=== PATIENT | female | born 1955 | race Caucasian/White ===

== ENCOUNTER 2017-07-30 19:50 | Emergency (ER) | payer OTHER ==
--- NOTE | 2017-07-30 19:52 | PDOC ---
History of Present Illness - General History Source: Patient Exam Limitations: No Limitations - History of Present Illness Initial Comments: 07/30/17 20:33 The patient is a 62 year old female, with no significant past medical history, who presents to the emergency department with, left ear pain and headache beginning this morning. The patient reports her ear to feel heated. She reports taking Excedrin, with relief this morning. She reports a significant headache. She reports a rash-like bump on the left sided back of her head. She denies recent fevers, chills, or dizziness. She denies recent nausea, vomit , diarrhea or constipation. She denies recent dysuria, frequency, urgency or hematuria. She denies recent chest pain or shortness of breath. Allergies: NKA Past surgical history: None reported. Social history: Nonsmoker. Denies EtOH use and recreational drug use. <Angie Wray - Last Filed: 07/30/17 20:52> <Emmy Olvera - Last Filed: 07/31/17 03:25> - General Chief Complaint: Pain Stated Complaint: L EAR/HEAD PAIN Time Seen by Provider: 07/30/17 19:52 Past History <Angie Wray - Last Filed: 07/30/17 20:52> <Emmy Olvera - Last Filed: 07/31/17 03:25> - Past Medical History Allergies/Adverse Reactions: Allergies Allergy/AdvReac Type Severity Reaction Status Date / Time No Known Allergies Allergy Unverified 07/30/17 19:51 Home Medications: Ambulatory Orders Valacyclovir HCl [Valtrex] 1,000 mg PO TID #20 tablet 07/30/17 Review of Systems - Review of Systems Able to Perform ROS?: Yes Comments:: 07/30/17 20:33 CONSTITUTIONAL: Absent: fever, no chills, no fatigue EYES: Absent: visual changes ENT: Present: +Ear pain Absent: no sore throat CARDIOVASCULAR: Absent: chest pain, no palpitations RESPIRATORY: Absent: cough, no SOB GI: Absent: abdominal pain, no nausea, no vomiting, no constipation, no diarrhea GENITOURINARY: Absent: dysuria, no frequency, no hematuria MUSKULOSKELETAL: Absent: back pain, no arthralgia, no myalgia SKIN: Absent: rash NEURO: Present: +headache All Other Systems: Reviewed and Negative <Angie Wray - Last Filed: 07/30/17 20:52> *Physical Exam - Vital Signs Last Vital Signs Temp Pulse Resp BP Pulse Ox 97.8 F 68 14 137/84 98 07/30/17 19:54 07/30/17 19:54 07/30/17 19:54 07/30/17 19:54 07/30/17 19:54 - Physical Exam Comments: 07/30/17 20:34 GENERAL: The patient is awake, alert, and fully oriented, in no acute distress. HEAD:+[id number] erythematous, mildly edematous, mildly tender, nonfluctuant lesion of the left occipital scalp. + cm x cm errythamous, mildly edematous, nontender, nonfluctuant, lesion of the left mid paraspinal upper neck. EYES: Pupils equal, round and reactive to light, extraocular movements intact, sclera anicteric, conjunctiva clear. EXTREMITIES: Normal range of motion, no edema. NEUROLOGICAL: Normal speech, normal gait. PSYCH: Normal mood, normal affect. SKIN: Warm, Dry, normal turgor. <Angie Wray - Last Filed: 07/30/17 20:52> ED Treatment Course - Medications Given in the ED: ED Medications Discontinued Medications Generic Name Dose Route Start Last Admin Trade Name Freq PRN Reason Stop Dose Admin Valacyclovir HCl 1,000 mg 07/30/17 20:29 07/30/17 20:31 Valtrex - PO 07/30/17 20:30 1,000 mg ONCE ONE Administration <Angie Wray - Last Filed: 07/30/17 20:52> Medical Decision Making - Medical Decision Making Documentation has been prepared under my direction and personally reviewed by me in its entirety. I attest that this documented accurately reflects all work, treatment, procedures and medical decision making performed by me. As noted above, this otherwise healthy 62-year-old woman presents with rash of the left side of her scalp along with left-sided headache and burning sensation of the left ear. No recent acute illness/malignancy or other process noted. Exam as noted above. Main lesion is erythematous, slightly tender, moderately edematous without vesicle or eschar, located in the left occipital scalp. Approximately 3 cm distal to this, in the left side of the posterior neck ( paraspinal region cervical area) is a smaller erythematous nontender slightly edematous lesion. No other rash noted. Although it is possible that main lesion is early cellulitis, this satellite lesion and presence of headache/ otalgia suggests early zoster. Patient was started on Valtrex 1 g with prescription for 1 g 3 times a day for one week sent to her pharmacy She should return to the ER if she has worsening pain/swelling/more extensive rash <Emmy Olvera - Last Filed: 07/31/17 03:25> *DC/Admit/Observation/Transfer - Attestations Scribe Attestion: 07/30/17 20:34 Documentation prepared by Angie Wray, acting as medical housekeeper for Emmy Olvera MD. <Angie Wray - Last Filed: 07/30/17 20:52> <Emmy Olvera - Last Filed: 07/31/17 03:25> Diagnosis at time of Disposition: Zoster Qualifiers: Herpes zoster complications: without complications Qualified Code(s): B02.9 - Zoster without complications - Discharge Dispostion Disposition: HOME Condition at time of disposition: Stable - Prescriptions Prescriptions: Valacyclovir HCl [Valtrex] 1,000 mg PO TID #20 tablet - Patient Instructions Printed Discharge Instructions: Shingles Additional Instructions: Valtrex 1 g 3 times a day for 1 week Ibuprofen/acetaminophen/naproxen as needed for pain Return to ER if you have severe pain/develop fever or more extensive rash No work tomorrow Follow-up with your doctor within 5 days - Post Discharge Activity Forms/Work/School Notes: Back to Work
[2017-07-30 19:59] VITALS: BP 137/84; PULSE 68; TEMP 97.8; BMI 30.7
[2017-07-30] MEDS ORDERED: valACYclovir HCL 1000 MG TABLET PO ONE (20:29)
[2017-07-30] MEDS ORDERED: valACYclovir HCL 500 MG TABLET (FP) ONE (20:32)
== END 2017-07-30 20:48 | disposition home or self-care (01) ==
LOC: FER 19:50
DX: B02.9 Zoster without complications (principal)
CPT/HCPCS: 99281-25

== ENCOUNTER 2017-08-07 18:44 | Emergency (ER) | payer OTHER ==
--- NOTE | 2017-08-07 19:04 | PDOC ---
History of Present Illness - General History Source: Patient Exam Limitations: No Limitations - History of Present Illness Initial Comments: 08/07/17 20:26 The patient is a 62 year old female with recent diagnosis of shingles 8 days ago who was started on Valtrex and finished prescription today. The patient comes in concerned that her shingles lesions haven't resolved yet and was unsure if she needed more medication. She reports having burning pain in the area of her shingles, but otherwise denies any other complaints. She denies fevers or chills. She reports not having a PCP, otherwise she would have followed up there. PAST MEDICAL HISTORY: no significant history PAST SURGICAL HISTORY: no significant history FAMILY HISTORY: no pertinent history SOCIAL HISTORY: Pt lives with family and is employed. MEDICATIONS: reviewed ALLERGIES: As per nursing notes ROS General: No fevers or chills, no weakness, no weight loss HEENT: No change in vision. No sore throat,. No ear pain CardioVascular: No chest pain or shortness of breath Respiratory:No cough, or wheezing. Gastrointestinal: no nausea, vomiting, diarrhea or constipation, No rectal bleeding Genitourinary: No dysuria, hematuria, or frequency Musculoskeletal: No joint or muscle pain or swelling Neurologic: No headache, vertigo, dizziness or loss of consciousness Psychiatric: nor depression Skin: Present: chin laceration No rashes or easy bruising Endocrine: no increased thirst or abnormal weight change Allergic: no skin or latex allergy All other systems reviewed and normal PE GENERAL: The patient is awake, alert, and fully oriented, in no acute distress. HEAD: Normal with no signs of trauma. EYES: Pupils equal, round and reactive to light, extraocular movements intact, sclera anicteric, conjunctiva clear. EXTREMITIES: Normal range of motion, no edema. NEUROLOGICAL: Normal speech, normal gait. PSYCH: Normal mood, normal affect. SKIN: Lesions consistent with shingles on the lateral neck, and posterior lower area below ear. Warm, Dry, normal turgor <Shahnaz Reis - Last Filed: 08/07/17 20:26> - General History Source: Patient Exam Limitations: No Limitations - History of Present Illness Initial Comments: Assessment and plan: This is a 62-year-old female who was diagnosed 8 days ago which shingles and now comes in for a reassurance and get some questions answers that she doesn't have a primary care doctor. Patient had finished her Valtrex and was concerned whether or not she would needed another prescription as a lesions have not resolved. Patient was reassured that she did not need any more Valtrex and that the lesions would slowly resolve over the next week or so. Patient otherwise was without complaints and discharged home. <Najma Stewart I - Last Filed: 08/07/17 21:48> - General Chief Complaint: Revisit,Wound Recheck Stated Complaint: FOLLOW UP FOR SHINGLES Time Seen by Provider: 08/07/17 19:02 Past History <Shahnaz Reis - Last Filed: 08/07/17 20:26> - Past Medical History COPD: No - Suicide/Smoking/Psychosocial Hx Smoking History: Unknown if ever smoked Have you smoked in the past 12 months: No Number of Cigarettes Smoked Daily: 0 Hx Alcohol Use: No Drug/Substance Use Hx: No Substance Use Type: None <Najma Stewart I - Last Filed: 08/07/17 21:48> - Past Medical History Allergies/Adverse Reactions: Allergies Allergy/AdvReac Type Severity Reaction Status Date / Time No Known Allergies Allergy Unverified 07/30/17 19:51 Home Medications: Ambulatory Orders Valacyclovir HCl [Valtrex] 1,000 mg PO TID #20 tablet 07/30/17 Review of Systems - Review of Systems Able to Perform ROS?: Yes All Other Systems: Reviewed and Negative <Shahnaz Reis - Last Filed: 08/07/17 20:26> *Physical Exam - Vital Signs Last Vital Signs Temp Pulse Resp BP Pulse Ox 98.1 F 65 15 123/72 97 08/07/17 18:46 08/07/17 18:46 08/07/17 18:46 08/07/17 18:46 08/07/17 18:46 <Shahnaz Reis - Last Filed: 08/07/17 20:26> *DC/Admit/Observation/Transfer - Attestations Scribe Attestion: 08/07/17 20:37 Documentation prepared by Shahnaz Reis, acting as medical office clerk for Najma Stewart MD. <Shahnaz Reis - Last Filed: 08/07/17 20:26> - Discharge Dispostion Admit: No <Najma Stewart I - Last Filed: 08/07/17 21:48> Diagnosis at time of Disposition: Zoster Qualifiers: Herpes zoster complications: without complications Qualified Code(s): B02.9 - Zoster without complications - Discharge Dispostion Disposition: HOME Condition at time of disposition: Good - Referrals Referrals: Gabo Chavez [Primary Care Provider] - - Patient Instructions Additional Instructions: Return to the emergency department immediately with ANY new, persistent or worsening symptoms. Continue any medications as previously prescribed by your physician. You should follow up with your primary doctor as soon as possible regarding today's emergency department visit. . Please make sure your doctor reviews the results of your emergency evaluation. Thank you for coming to the Emergency Department today for your care. It was a pleasure to see you today. Please note that your evaluation is INCOMPLETE until you follow-up with your doctor. - Post Discharge Activity
[2017-08-07 19:18] VITALS: BP 123/72; PULSE 65; TEMP 98.1; BMI 31.7
== END 2017-08-07 19:59 | disposition home or self-care (01) ==
LOC: FER 18:44
DX: B02.9 Zoster without complications (principal)
CPT/HCPCS: 99281-25

== ENCOUNTER 2017-09-17 19:11 | Emergency (ER) | payer OTHER ==
[2017-09-17 19:15] VITALS: BP 139/82; PULSE 81; TEMP 97.8; BMI 31.7
--- NOTE | 2017-09-17 20:21 | PDOC ---
History of Present Illness - General History Source: Patient Exam Limitations: No Limitations - History of Present Illness Initial Comments: 09/17/17 20:54 The patient is a 62 year old female, with a significant past medical history of shingles, who presents to the emergency department with, left knee pain for approx. one week and diffuse mild back pain for one day. The patient reports that 7 days ago she slipped on water from the boiler at home and twisted her left knee. The patient states she has been icing her left knee and elevating the left knee at night with mild relief. However, she states that beginning this morning she has been having diffuse mild back pain and believes it may be associated with her left knee so she decided to come to the ED for evaluation. She denies any recent head injury or loss of consciousness. She denies any recent numbness, tingling or loss of sensation. She denies any recent incontinence. She denies any recent chest pain or shortness of breath. Allergies: NKA <Augustin Mcrae - Last Filed: 09/17/17 20:54> <Emmy Olvera - Last Filed: 09/18/17 05:22> - General Chief Complaint: Pain, Acute Stated Complaint: L KNEE PAIN Time Seen by Provider: 09/17/17 19:18 Past History <Augustin Mcrae - Last Filed: 09/17/17 20:54> - Past Medical History COPD: No Hypercholesterolemia: Yes - Suicide/Smoking/Psychosocial Hx Smoking History: Unknown if ever smoked Have you smoked in the past 12 months: No Number of Cigarettes Smoked Daily: 0 Information on smoking cessation initiated: No Hx Alcohol Use: No Drug/Substance Use Hx: No Substance Use Type: None <Emmy Olvera - Last Filed: 09/18/17 05:22> - Past Medical History Allergies/Adverse Reactions: Allergies Allergy/AdvReac Type Severity Reaction Status Date / Time No Known Allergies Allergy Unverified 07/30/17 19:51 Home Medications: Ambulatory Orders Valacyclovir HCl [Valtrex] 1,000 mg PO TID #20 tablet 07/30/17 Diclofenac Sodium [Voltaren -] 75 mg PO BID PRN #20 tablet. 09/17/17 Review of Systems - Review of Systems Comments:: 09/17/17 20:55 GENERAL/CONSTITUTIONAL: No fever or chills. No weakness. HEAD, EYES, EARS, NOSE AND THROAT: No change in vision. No ear pain or discharge. No sore throat. CARDIOVASCULAR: No chest pain or shortness of breath. RESPIRATORY: No cough, wheezing, or hemoptysis. GASTROINTESTINAL: No nausea, vomiting, diarrhea or constipation. GENITOURINARY: No dysuria, frequency, or change in urination. MUSCULOSKELETAL: +Left knee pain. +Mild diffuse back pain. No neck pain. SKIN: No rash NEUROLOGIC: No headache, vertigo, loss of consciousness, or change in strength/ sensation. ENDOCRINE: No increased thirst. No abnormal weight change. HEMATOLOGIC/LYMPHATIC: No anemia, easy bleeding, or history of blood clots. ALLERGIC/IMMUNOLOGIC: No hives or skin allergy. <Augustin Mcrae - Last Filed: 09/17/17 20:54> *Physical Exam - Vital Signs Last Vital Signs Temp Pulse Resp BP Pulse Ox 97.8 F 81 14 139/82 98 09/17/17 19:13 09/17/17 19:13 09/17/17 19:13 09/17/17 19:13 09/17/17 19:13 - Physical Exam Comments: 09/17/17 20:56 GENERAL: Awake, alert, and fully oriented, in no acute distress HEAD: No signs of trauma EYES: PERRLA, EOMI, sclera anicteric, conjunctiva clear ENT: Auricles normal inspection, hearing grossly normal, nares patent, oropharynx clear without exudates. Moist mucosa NECK: Normal ROM, supple, no lymphadenopathy, JVD, or masses EXTREMITIES: +Left lower extremity mild diffuse knee edema with mild tenderness of the medial aspect, no deformity or ecchymosis. No ligamentous instability noted. +Pain was reproduced with valgus stressing of the knee. No posterior edema or tenderness. NEUROLOGICAL: Cranial nerves II through XII grossly intact. Normal speech, normal gait SKIN: Warm, Dry, normal turgor, no rashes or lesions noted. <Augustin Mcrae - Last Filed: 09/17/17 20:54> - Vital Signs Last Vital Signs Temp Pulse Resp BP Pulse Ox 97.8 F 81 14 139/82 98 09/17/17 19:13 09/17/17 19:13 09/17/17 19:13 09/17/17 19:13 09/17/17 19:13 <Emmy Olvera - Last Filed: 09/18/17 05:22> ED Treatment Course - Medications Given in the ED: ED Medications Discontinued Medications Generic Name Dose Route Start Last Admin Trade Name Christie PRN Reason Stop Dose Admin Ketorolac Tromethamine 60 mg 09/17/17 20:48 09/17/17 20:51 Toradol Injection - IM 09/17/17 20:49 60 mg ONCE ONE Administration <Augustin Mcrae - Last Filed: 09/17/17 20:54> - RADIOLOGY Radiology Studies Ordered: Category Date Time Status KNEE 3 POS-LEFT [RAD] Stat Radiology 09/17/17 19:37 Taken <Emmy Olvera - Last Filed: 09/18/17 05:22> Progress Note - Progress Note Progress Note: Documentation has been prepared under my direction and personally reviewed by me in its entirety. I attest that this documented accurately reflects all work, treatment, procedures and medical decision making performed by me. <Emmy Olvera - Last Filed: 09/18/17 05:22> Medical Decision Making - Medical Decision Making As noted above, this 62-year-old woman presents with a history of a twisting type injury of her left knee 1 week ago. Although she has had some improvement in her initial pain, she continues to have some persistence of swelling and pain on movement especially in the medial portion of the knee. No previous history of this type of pain/injury of the knee. Exam was consistent with tenderness of the medial aspect of the knee (at the medial collateral ligament area) without ligamentous instability. 3 position left knee x-ray shows no evidence of fracture dislocation. Clinical presentation most consistent with knee sprain. Since patient is 1 week out of her knee injury, will not place knee immobilizer. Patient has knee brace that she brought [id number], that she uses during the day. Meanwhile, she should continue to elevate the leg as much as possible at night. She will be given referral information for orthopedist, with whom she should follow up within the next week. Toradol 60 mg IM will be given here here for anti-inflammatory/analgesic effect. Diclofenac 75 mg twice a day as needed ( taken with food) will be prescribed. <Emmy Olvera - Last Filed: 09/18/17 05:22> *DC/Admit/Observation/Transfer - Attestations Physician Attestion: 09/17/17 20:56 Documentation prepared by Augustin Mcrae, acting as medical coding instructor for Emmy Olvera MD. <Augustin Mcrae - Last Filed: 09/17/17 20:54> <Emmy Olvera - Last Filed: 09/18/17 05:22> Diagnosis at time of Disposition: Left knee sprain Qualifiers: Encounter type: initial encounter Involved ligament of knee: medial collateral ligament Qualified Code(s): S83.412A - Sprain of medial collateral ligament of left knee, initial encounter - Discharge Dispostion Disposition: HOME Condition at time of disposition: Stable - Prescriptions Prescriptions: Diclofenac Sodium [Voltaren -] 75 mg PO BID PRN #20 tablet.dr PRN Reason: Pain - Referrals Referrals: Mando Panda MD [Staff Physician] - - Patient Instructions Printed Discharge Instructions: Knee Sprain Additional Instructions: Continue knee support during the day Continue elevation of left leg at night Diclofenac 75 mg twice a day with food as needed for pain Follow-up with orthopedist within the next 5 days (call office tomorrow to arrange appointment) Return to ER if you have more severe pain or swelling
[2017-09-17] MEDS ORDERED: KETOROLAC TROMETHAMINE 60 MG/2 ML VIAL IM ONE (20:48)
[2017-09-17] MEDS ORDERED: KETOROLAC TROMETHAMINE 60 MG/2 ML VIAL ONE (20:53)
== END 2017-09-17 21:01 | disposition home or self-care (01) ==
LOC: FER 19:11
PROC: 3E0133Z Introduction of Anti-inflammatory into Subcutaneous Tissue, Percutaneous Approach (ICD-10-PCS; principal; 2017-09-17)
DX: S83.412A Sprain of medial collateral ligament of left knee, initial encounter (principal); X50.0XXA Overexertion from strenuous movement or load, initial encounter; Y93.01 Activity, walking, marching and hiking; Y92.009 Unspecified place in unspecified non-institutional (private) residence as the place of occurrence of the external cause
CPT/HCPCS: 73562-TC-LT-FY; 99282-25